=== PATIENT | female | born 1980 | race African-American/Black ===

== ENCOUNTER 2025-05-08 02:37 | Emergency (ER) | payer OTHER, SELFPAY ==
--- NOTE | ~2025-05-08 | XR_ITS ---
CLINICAL HISTORY: cough 2 view chest x-ray. Comparison: None Findings: Low lung volumes. Lungs are clear. No pneumothorax or pleural effusion. Heart size normal. No passive venous congestion. No midline shift or tracheal deviation. No acute fracture. Impression: 1. No acute cardiopulmonary disease. This document has been electronically signed by: Jagjit Huerta MD on 05/08/2025 05:57:15
[2025-05-08 02:41] VITALS: BP 123/81; PULSE 84; RESP 14; TEMP 36.7; O2SAT 98; BMI 29.0
--- NOTE | 2025-05-08 02:41 | ECG_ITS ---
Test Reason : CP Blood Pressure : */* mmHG Vent. Rate : 73 BPM Atrial Rate : 73 BPM P-R Int : 160 ms QRS Dur : 74 ms QT Int : 382 ms P-R-T Axes : 25 57 37 degrees QTcB Int : 420 ms Normal sinus rhythm with sinus arrhythmia Low voltage QRS Borderline ECG No previous ECGs available Referred By: Generic ED Physician Electronically Signed By: Steven Thompson
[2025-05-08 03:01] LABS: MANUAL DIFF FLAG NO
[2025-05-08 03:02] LABS: Hematocrit 36.4 % (37.0-47.0); Hemoglobin 11.8 g/dl (12.0-16.0); Imm Gran Abs Auto 0.01 X10*3/uL (0.00-0.03); Imm Gran Pct Auto 0.2 % (0.0-0.4); Lymphocytes Absolute Auto 1.9 X10*3/uL (1.2-4.9); Mean Corpuscular HGB Conc 32.4 g/dl (31.0-35.0); Mean Corpuscular Hemoglobin 28.6 pg (27.0-33.0); Mean Corpuscular Volume 88.3 fL (80.0-98.0); NRBC Abs Auto 0.000 X10*3/uL (0.0-0.012); NRBC Pct Auto 0.0 /100WBC (0.0-0.2); Platelet Count 270 X10*3/uL (160-400); Red Blood Count 4.12 X10*6/uL (4.20-5.50); White Blood Count 6.2 X10*3/uL (4.8-10.8)
[2025-05-08 03:07] VITALS: BP 132/79; PULSE 81; RESP 20; TEMP 36.8; O2SAT 98
--- NOTE | 2025-05-08 03:10 | ED.CHESTPAIN ---
HPI - Chest Pain General Chief Complaint: Chest Pain Stated Complaint: chest pain Time Seen by Provider: 05/08/25 03:10 History of Present Illness ED Provider: Loraine DANG narrative: The patient is a 45-year-old who is generally in good health. The patient states that they have felt unwell for about 4 days. The syndrome began with a sore throat and what they describe as ?flu-like symptoms? with body aches and a headache. Also a sense of nasal congestion. The sore throat lasted for 2 days and then got better. The patient thought that she might be getting better but over the last 24 hours has felt worse again with a cough and some pain in her left lower back. No significant pleuritic pain. She does not feel particularly short of breath. She does not think she has had a fever. No pain or swelling in her legs. The patient takes Xyzal for allergies. She is not on any control pills. She has an IUD. Related Data Previous Rx's ?Medication ?Instructions ?Recorded doxycycline monohydrate 100 mg 100 mg PO BID #14 caps 05/08/25 capsule Allergies Allergy/AdvReac Type Severity Reaction Status Date / Time No Known Allergies Allergy Verified 05/08/25 02:43 Review of Systems Review of Systems: Yes all other systems are reviewed and are negative [facility] Social History Social History Advance Directives: No Advance Directives Information Provided: No Do you have a plan to hurt others: No Plan Physical Exam Vital Signs: Vital Signs: Last Vital Signs Temp 98.6 F 05/08/25 05:02 Pulse 67 05/08/25 05:02 Resp 18 05/08/25 05:02 BP 116/74 05/08/25 05:02 Pulse Ox 97 05/08/25 05:02 O2 Del Method Room Air 05/08/25 05:02 BMI result Body Mass Index 29.0 Const: Other: The patient is a 45-year-old who was awake, alert, pleasant, cooperative. The patient does not appear obviously acutely ill or in distress at all. Orientation/consciousness: patient oriented x3 HEENT: Other: The face is symmetrical. ?Mucous membranes moist. Posterior pharynx is unremarkable. Eyes: Other: Pupils are round equal, conjunctivae are clear, extraocular movements intact General: appearance normal, both eyes and all related structures Neck: Neck: Yes normal visual inspection, Yes full ROM and Yes no lymphadenopathy Resp: Effort & Inspection: normal respiratory effort Auscultation: clear to auscultation bilaterally Cardio: Rate: regular rate Rhythm: regular rhythm Heart sounds: S1 normal heart sound present and S2 normal heart sound present Back/Spine/Pelvis: Other: The patient has some left lower paraspinous tenderness. Skin: Other: The skin is dry and unremarkable Neuro: General: patient oriented x3, gait normal, tone normal, moves all extremities, no focal motor deficits and CN's II-XI intact bilaterally Extrem: Other: There is no calf swelling or tenderness. No asymmetry. No peripheral edema. Medications Administered Discontinued Medications Generic Name Dose Route Start Last Admin Trade Name Freq PRN Reason Stop Dose Admin Acetaminophen 975 mg 05/08/25 03:29 05/08/25 03:40 Acetaminophen 325 Mg Tablet PO 05/08/25 03:30 975 mg ONCE ONE Administration Doxycycline Monohydrate 100 mg 05/08/25 04:43 05/08/25 04:58 Doxycycline Monohydrate 100 Mg Capsule PO 05/08/25 04:44 100 mg ONCE ONE Administration Ketorolac Tromethamine 30 mg 05/08/25 03:29 05/08/25 03:40 Ketorolac Tromethamine 30 Mg/Ml Vial IM 05/08/25 03:30 30 mg ONCE ONE Administration Medical Decision Making Medical Decision Making [facility] Narrative: The patient is a 45-year-old woman who comes to the emergency room with symptoms consistent with a 4 day illness with a largely respiratory symptoms. She had 2 days of a sore throat but the sore throat has resolved. More recently she has had a cough. Also a lot of nasal congestion and a headache. She also has some low back pain. No urinary symptoms. She has had a mild headache. Clinically the patient does not look toxic. Vital signs were normal. She is not febrile. She has a normal white count and differential. CRP minimally elevated at 0.88. She has a minimal transaminitis with an AST of 37 and an ALT of 40. I felt that her chest x-ray might shows some subtle bilateral abnormalities potentially consistent with a an atypical pneumonia. She was started on doxycycline. She should follow up with the regular doctor. She should return if worse. The patient had some left lower back pain. This did not seem particularly pleuritic. It seemed fairly low more in the lumbar region than in the thoracic region. I do not have any significant suspicion for pulmonary embolism. She is not tachycardic or hypoxic, she has no peripheral signs of a DVT, and the pain she is experiencing does not seem to be particularly pleuritic. Lab Data 05/08/25 02:56 05/08/25 02:56 Labs: Lab Results 05/08/25 Range/Units 02:56 WBC 6.2 (4.8-10.8) X10*3/uL RBC 4.12 L (4.20-5.50) X10*6/uL Hgb 11.8 L (12.0-16.0) g/dl Hct 36.4 L (37.0-47.0) % MCV 88.3 (80.0-98.0) fL MCH 28.6 (27.0-33.0) pg MCHC 32.4 (31.0-35.0) g/dl RDW 13.4 (11.0-16.0) % Plt Count 270 (160-400) X10*3/uL MPV 9.8 (9.4-12.3) fL Immature Gran % (Auto) 0.2 (0.0-0.4) % Neut % (Auto) 56.5 (45-73) % Lymph % (Auto) 31.0 (20-40) % [place] % (Auto) 6.7 (2-11) % Eos % (Auto) 5.3 H (0-4) % Baso % (Auto) 0.3 (0-2) % Lymph # (Auto) 1.9 (1.2-4.9) X10*3/uL [place] # (Auto) 0.4 (0.1-1.2) X10*3/uL Eos # (Auto) 0.3 (0.0-0.4) X10*3/uL Baso # (Auto) 0.0 (0.0-0.2) X10*3/uL Abs Immat Gran (auto) 0.01 (0.00-0.03) X10*3/uL Absolute Neuts (auto) 3.5 (2.0-8.3) x10*3/uL Absolute Nucleated RBC 0.000 (0.0-0.012) X10*3/uL Nucleated RBC % (auto) 0.0 (0.0-0.2) /100WBC Sodium 137 (135-145) mmol/L Potassium 4.1 (3.3-5.1) mmol/L Chloride 109 H (96-108) mmol/L Carbon Dioxide 21 L (22-29) mmol/L Anion Gap 11 L (12-20) BUN 13 (9-16) mg/dL Creatinine 0.70 (0.5-1.4) mg/dL Estim Creat Clear Calc 110.4 Estimated GFR > 60 Random Glucose 97 (60-115) mg/dL Calcium 8.7 (8.4-10.2) mg/dL Total Bilirubin 0.3 (0.0-1.0) mg/dL AST 37 H (5-31) U/L ALT 40 H (0-31) U/L Alkaline Phosphatase 75 (39-117) U/L Troponin I High Sens < 2.7 (<3.5-17.0) ng/L C-Reactive Protein 0.88 H (< or = 0.50) mg/dL Total Protein 7.7 (6.5-8.0) g/dL Albumin 4.1 (3.5-5.0) g/dL Beta HCG, Quant < 2 mIU/mL Influenza Type A (PCR) NEGATIVE (Negative) Influenza Type B (PCR) NEGATIVE (Negative) RSV RNA Qual (PCR) NEGATIVE (Negative) SARS-CoV-2 RNA (RT-PCR) NEGATIVE (Negative) Independent Interpretation I performed an independent interpretation of an: EKG Interpretation: EKG at 02:46 shows normal sinus rhythm with a sinus arrhythmia at 73 beats per minute. It is an unremarkable EKG. Discharge Plan Discharge Clinical Impression: Atypical pneumonia Patient Disposition: Home, Self-Care Additional Instructions: Your blood testing is very reassuring. In my opinion your chest x-ray may show some slight changes potentially consistent with a pneumonia. You has been started on a course of the antibiotic doxycycline. This antibiotics should be taken 2 times a day, approximately every 12 hours. You received your 1st dose here in the emergency room. The prescription was sent to the [facility] on [facility] in [place]. You may use ibuprofen and acetaminophen as needed for discomfort. For your sinuses you may wish to experiment with a Neti pot. Drink lot of fluids, especially warm fluids like tea and hot soup. Please plan on following up with your new primary care doctor when you have a chance. Return to the emergency room if you feel significantly worse. Prescriptions: New doxycycline monohydrate 100 mg capsule 100 mg PO BID Qty: 14 0RF Referrals: Sara Guzmán FNP-HAIDER [Nurse Practitioner, Internal Medicine] Stand Alone Forms: Work/School Release Interventions: ED Discharge Assessment Last Done: 05/08/25 05:02 Discharge Date/Time: 05/08/25 05:13 Print Language: Vietnamese
--- OUTSIDE RECORDS SUMMARY | 2025-05-08 03:14 | XMS_ITS | Clinical Summary ---
Author Organization [address] Address [address] [place] [phone] Phone Care Team Providers Care Construction Trades Contractor Name Role Phone Sharmaine Noe MD Primary Care Provider [phone] [phone] Allergies No known active allergies Medications fluconazole (DIFLUCAN) 150 mg tablet Take 1 tab by mouth now. May repeat in 72 hours if still symptomatic . 2 tablet 02/16/2025 Active Encounters Date Type Department Care Team Description 02/16/2025 11:15 AM EDT Office Visit [facility] [address] [place] [address] Leonor Tanner CNM Acute vaginitis (Primary Dx); Screen for STD (sexually transmitted disease) from Last 3 Months Surgical History Surgery Date Site/Laterality Comments ELBOW SURGERY 2001 and 2007 Right PROCEDURE: HISTORICAL ELBOW SURGERY BELT ABDOMINOPLASTY 07/2022 PROCEDURE: HISTORICAL TUMMY TUCK; COMMENT: [place] Medical History Medical History Date Comments Obesity DX:Obesity Family History Medical History Relation Name Comments Breast cancer Neg Hx Colon cancer Neg Hx Ovarian cancer Neg Hx Social History Tobacco Use Types Packs/Day Years Used Date Smoking Tobacco: Never Smokeless Tobacco: Never Alcohol Use Standard Drinks/Week Comments No 0 (1 standard drink = 0.6 oz pur e alcohol) Comments No Sex and Gender Information Value Date Recorded Sex Assigned at Not on file Legal Sex Female 9:47 PM EST Gender Identity Not on file Sexual Orientation Not on file Obstetrics History * This document contains information received from the source organization and may not represent a complete record from that organization. Para Term AB IAB SAB Ectopic Multiple Livin g Live Births 6 2 2 2 2 Date Outcome GA Total Labor Labor/2nd/3rd Weight Sex Type Anes PTL Antonietta A1 A5 Name Clin 1999 Term Vag-S pont Livin g Comments:anemia 2003 2004 2005 2006 2015 Term 39w 0d 4139 g (146 oz) M CS-LT ranv Spinal Livin g Jongae l Sandeep [facility] Comments:Placenta prev ia vs vasal previa Last Filed Vital Signs Vital Sign Reading Time Taken Comments Blood Pressure 98/60 02/16/2025 11:22 AM EDT Pulse 84 02/16/2025 11:22 AM EDT Temperature - - Respiratory Rate - - Oxygen Saturation - - Inhaled Oxygen Concentration - - Weight 96 kg (211 lb 9.6 oz) 11/01/2021 3:37 PM EDT Height 166.4 cm (5' 5.5 ) 11/07/2022 4:00 PM EDT Body Mass Index - - Plan of Treatment Health Maintenance Due Date Last Done Comments Hepatitis A Vaccines (1 of 2 - Risk 2-dose series) 02/11/2000 HIV Screening 06/09/2022 Hepatitis C Screening 06/09/2022 Social Influencers of Health Screening 06/09/2022 Cervical Cancer Screening: Pap Smear 09/10/2023 09/09/2020, 08/25/2020 Depression Screening 07/01/2024 COVID-19 Vaccine ( season) 2025 Influenza Vaccine (#1) 2025 9, 04/29/2018, 04/29/2018, Additional history exists Breast Cancer Screening 12/17/2025 12/18/19 24, 12/18/2023, 11/13/2022 DTaP,Tdap,and Td Vaccines (10 - Td or Tdap) 02/06/2026 02/07/2016, 02/04/2016, 01/01/2014, Additional history exists RSV Immunization Adult Patients (1 - 1-dose 75+ series) 02/11/2056 IPV Vaccines Completed 12/29/1986, 05/01, 1981, Additional history exists Hepatitis B Vaccines Completed 03/31/1998, 07/27/1997, 12/10/1996 HPV Vaccines Completed 01/16/2008, 08/29, 06/19/2007 Meningococcal ACWY Vaccine Aged Out 12/27/2012 N o longer eligible based on patient's age to complete this topic MMR Vaccines Completed 02/22/2016, 07/1990, 08/17/1982 HIB Vaccines Aged Out No longer eligi ble based on patient's age to complete this topic Meningococcal B Vaccine Aged Out No l onger eligible based on patient's age to complete this topic Pneumococcal Vaccine: Pediatrics (0 to 5 Years) and At-Risk Patients (6 to 49 Years) Aged Out No longer eligible based on patient's age to complete this topic RSV Immunization Patients Under 20 months Aged Out No longer eligible based on patient's age to complete this topic Varicella Vaccines Aged Out No longer eligible based on patient's age to complete this topic Procedures Procedure Name Priority Date/Time Associated Diagnosis Comments TRICHOMONAS VAGINALIS ANTIGEN Routine 02/16/2025 11:36 AM EDT Acute vaginitis CHLAMYDIA TRACHOMATIS AND NEISSERIA GONORRHOEAE PCR Routine 02/16/2025 11:36 AM EDT Acute vaginitis Screen for STD (sexually transmitted disease) WET PREP, GENITAL Routine 02/16/2025 11: 36 AM EDT Acute vaginitis SCREENING MAMMOGRAPHY BI 2-VIEW BREAST INC CAD Routine 12/18/2023 11:17 AM EDT Encounter for screening mammogram for malignant neoplasm of breast PAP SMEAR Routine 09/09/2020 from Last 3 Months or Most Recently Relevant to Health Maintenance Results * Trichomonas vaginalis antigen (02/16/2025 11:36 AM EDT) Trichomonas vaginalis Negative Negative 02/16/2025 9:43 PM EDT [facility] Swab Vaginal structure / Unknown Non-blood Collection / Unknown 02/16/2025 11:36 AM EDT 02/16/2025 11:36 AM EDT [facility] LAB MICROBIOLOGY - GENERAL OR DERABLES Final Result Performing Organization Address [facility] Co de Phone Number [facility] [address] [place] [address], [place] [phone] * Chlamydia trachomatis and Neisseria gonorrhoeae molecular study (02/16/2025 11:36 AM EDT) Neisseria gonorrhoeae PCR Negative Negative LAB MOLECULAR DIAGNOSTICS METHOD 02/17/2025 8:38 AM EDT [facility] Chlamydia trachomatis PCR Negative Negative LAB MOLECULAR DIAGNOSTICS METHOD 02/17/2025 8:38 AM EDT [facility] Swab Cervix uteri structure / Unknown Non-blood Collection / Unknown 02/16/2025 11:36 AM EDT 02/16/2025 11:36 AM EDT [facility] LAB MICROBIOLOGY - GENERAL OR DERABLES Final Result Performing Organization Address [facility] de Phone Number [facility] [address] [place] [address], [place] [phone] * (ABNORMAL) Wet prep, genital (02/16/2025 11:36 AM EDT) Pathologist [facility] Clue Cells, Wet Prep Negative Negative 02/16/2025 9:41 PM EDT [facility] Yeast, Wet Prep Positive(A) Negative 02/16/2025 9:41 PM EDT [facility] Trichomonas, Wet Prep Indeterminate Negative 02/16/2025 9:41 PM EDT [facility] Comment:Refer to Trichomonas antigen. Swab Vaginal structure / Unknown Non-blood Collection / Unknown 02/16/2025 11:36 AM EDT 02/16/2025 11:36 AM EDT [facility] LAB MICROBIOLOGY - GENERAL OR DERABLES Final Result Performing Organization Address City/[facility]/ZIP Co de Phone Number [facility] [place] [facility] [address] [place] [address], * SCREENING MAMMOGRAPHY BI 2-VIEW BREAST INC CAD (12/18/2023 11:17 AM EDT) Anatomical Region Laterality Modality Radiographic Yudy ging 11/13/2022 3:29 PM EDT Narrative 12/18/2023 1:16 PM EDT This is a summary report. The complete report is available in the patient's medical record. If you cannot access the medical record, please contact the sending organization for a detailed fax or copy. Full field digital screening tomosynthesis mammography, reviewed with CAD and compared to previous. The breasts are composed of fatty and fibroglandular tissue. No suspicious mass, architectural distortion or suspicious calcifications are identified. IMPRESSION: : No mammographic evidence of malignancy. BIRADS 1-Negative; N. 5 year breast cancer risk assessment 0.7 % Lifetime breast cancer risk assessment 9.5 % Breast cancer risk category Low (<15%) Procedure Note Jeffery Beth MD - 04/15/2024 This is a summary report. The complete report is available in thepatient's medical record. If you cannot access the medical record, pleasecontact the sending organization for a detailed fax or copy. Full field digital screening tomosynthesis mammography, reviewed with CADand compared to previous. The breasts are composed of fatty andfibroglandular tissue. No suspicious mass, architectural distortion orsuspicious calcifications are identified. IMPRESSION: : No mammographic evidence of malignancy. BIRADS 1-Negative; N. 5 year breast cancer risk assessment 0.7 % Lifetime breast cancer risk assessment 9.5 % Breast cancer risk category Low (<15%) us Sherice Ragsdale DO IMG XR PROCEDURES Final Resul t * Pap smear (09/09/2020) 09/09/2020 Narrative HISTORICAL TESTING LAB RESULTING AGENCY - 09/16/2020 12:50 PM EDT [id number] THINPREP PAP, IMAGED: NEGATIVE FOR SQUAMOUS INTRAEPITHELIAL LESION AND MALIGNANCY . REACTIVE CELLULAR CHANGES. SUKHI REESE(ASCP) (CASE SCREENED 09 14 2020) KARI MONROE M.D. , PATHOLOGIST (CASE ELECTRONICALLY SIGNED 09 15 2020) RESULT OF APTIMA HIGH RISK HPV ASSAY: HIGH RISK HPV: NEGATIVE (SEROTYPES 16,18,31,33,35,39,45,51,52,56,58,59,66,68) COMPLETED ON 2020-09-13 ADEQUACY: SATISFACTORY ENDOCERVICAL/TRANSFORMATION ZONE COMPONENT PRESENT. SOURCE: THINPREP PAP HPV ANY DX: REFLEX 16 AND 18, CERVICAL, IMAGED CLINICAL INFORMATION: HPV ANY DIAGNOSIS. HORMONES, PAP HX NEG, Z12.4 Maddie Alvarez [facility] CYTOLOGY ORDERA [facility] Final Result HISTORICAL TESTING LAB RESULTING AGENCY from Last 3 Months or Most Recently Relevant to Health Maintenance Insurance [employer] Care Teams Construction Trades Contractor Relationship Specialty Start Date End Date Sharmaine Noe MD [address] [place] [address] PCP - General Internal Medicine 07/25/15
[2025-05-08 03:15] LABS: Alanine Aminotransferase 40 U/L (0-31); Albumin Level 4.1 g/dL (3.5-5.0); Alkaline Phosphatase 75 U/L (39-117); Anion Gap 11 (12-20); Aspartate Amino Transferase 37 U/L (5-31); Blood Urea Nitrogen 13 mg/dL (9-16); Calcium 8.7 mg/dL (8.4-10.2); Carbon Dioxide 21 mmol/L (22-29); Chloride 109 mmol/L (96-108); Creatinine Clr Calc Pharmacy 110.4; Estimated Glomerular Filt Rate > 60; Potassium 4.1 mmol/L (3.3-5.1); Sodium 137 mmol/L (135-145); Total Protein 7.7 g/dL (6.5-8.0)
[2025-05-08 03:22] LABS: Troponin-I High Sensitivity < 2.7 ng/L (<3.5-17.0)
[2025-05-08 03:38] LABS: Resp Syncy Virus RNA Qual PCR NEGATIVE (Negative); SARS COV2 PCR INHOUSE NEGATIVE (Negative)
[2025-05-08 04:17] VITALS: BP 116/74; PULSE 67; RESP 18; O2SAT 97
[2025-05-08 05:02] VITALS: BP 116/74; PULSE 67; RESP 18; TEMP 37; O2SAT 97
== END 2025-05-08 05:13 | disposition home or self-care (01) ==
PROVIDERS: Emergency Provider Emergency Medicine
DX: J18.9 Pneumonia, unspecified organism (principal); M54.50 Low back pain, unspecified
CPT/HCPCS: 71046; 80053; 84484; 84702; 85025; 86140; 87637; 93005; 96372; 99284; 99285; J1885

== ENCOUNTER → 2025-05-08 02:41 | Outpatient (BNV) | payer OTHER, SELFPAY | PROVIDERS: Emergency Provider Emergency Medicine; Visit Provider Internal Medicine Cardiovascular Disease | DX: R07.9 Chest pain, unspecified (principal) | CPT/HCPCS: 93010 ==

== ENCOUNTER → 2025-05-08 04:00 | Outpatient (BNV) | payer OTHER, SELFPAY | PROVIDERS: Emergency Provider Emergency Medicine; Visit Provider Radiology Diagnostic Radiology | DX: R05.9 Cough, unspecified (principal) | CPT/HCPCS: 71046 ==

== ENCOUNTER 2025-06-18 06:13 | Outpatient (REF) | payer OTHER, SELFPAY ==
--- OUTSIDE RECORDS SUMMARY | 2025-06-18 06:17 | XMS_ITS | Clinical Summary ---
Author Organization [address] Address [address] [place] [phone] Phone Care Team Providers Care [employer] Social Studies Tutor Name Role Phone Sharmaine Noe MD Primary Care Provider +[phone] Allergies No known active allergies Medications fluconazole (DIFLUCAN) 150 mg tablet Take 1 tab by mouth now. May repeat in 72 hours if still symptomatic . 2 tablet 02/16/2025 Active Surgical History Surgery Date Site/Laterality Comments ELBOW SURGERY 2001 and 2007 Right PROCEDURE: HISTORICAL ELBOW SURGERY BELT ABDOMINOPLASTY 07/2022 PROCEDURE: HISTORICAL TUMMY TUCK; COMMENT: [place] Medical History Medical History Date Comments Obesity [...] oz) M CS-LT ranv Spinal Livin g Michae l Sandeep Delivery Location:[facility] Comments:Placenta prev ia vs vasal previa Last [...] Additional history exists Breast Cancer Screening 12/17/2025 12/18/19, 12/18/2023, 11/13/2022 DTaP,Tdap,and Td Vaccines (10 - [...] Procedure Name Priority Date/Time Associated Diagnosis Comments SCREENING MAMMOGRAPHY BI 2-VIEW BREAST INC CAD Routine 12/18/2023 11:17 AM EDT Encounter for screening mammogram for malignant neoplasm of breast PAP SMEAR Routine 09/09/2020 from Last 3 Months or Most Recently Relevant to Health Maintenance Results * SCREENING MAMMOGRAPHY BI 2-VIEW BREAST INC [...] % Breast cancer risk category Low (<15%) Sherice Ragsdale DO IMG XR PROCEDURES Final Resul t * Pap smear (09/09/2020) 09/09/2020 Narrative HISTORICAL TESTING LAB RESULTING AGENCY - 09/16/2020 12:50 PM EDT [id number] THINPREP PAP, IMAGED: NEGATIVE FOR SQUAMOUS INTRAEPITHELIAL LESION AND MALIGNANCY . REACTIVE CELLULAR CHANGES. CABRERA FITCH , SUKHI(ASCP) (CASE SCREENED 09 14 2020) KARI MONROE M.D. , PATHOLOGIST (CASE ELECTRONICALLY SIGNED 09 15 2020) RESULT OF APTIMA HIGH RISK HPV ASSAY: HIGH RISK HPV: NEGATIVE (SEROTYPES 16,18,31,33,35,39,45,51,52,56,58,59,66,68) COMPLETED ON 2020-09-13 ADEQUACY: SATISFACTORY ENDOCERVICAL/TRANSFORMATION ZONE COMPONENT PRESENT. SOURCE: THINPREP PAP HPV ANY DX: REFLEX 16 AND 18, CERVICAL, IMAGED CLINICAL INFORMATION: HPV ANY DIAGNOSIS. HORMONES, PAP HX NEG, Z12.4 Maddie Alvarez CN LAB CYTOLOGY ORDERA BLES Final Result HISTORICAL TESTING LAB RESULTING AGENCY from Last 3 Months or Most Recently Relevant to Health Maintenance Insurance [employer] Care Teams High School Social Studies Tutor Relationship Specialty Start Date End Date Sharmaine Noe MD [address] [place] [address] PCP - General Internal Medicine 07/25/15
[2025-06-18 06:36] LABS: MANUAL DIFF FLAG NO
[2025-06-18 07:22] LABS: Resp Syncy Virus RNA Qual PCR NEGATIVE (Negative); SARS COV2 PCR INHOUSE NEGATIVE (Negative)
[2025-06-18 08:16] LABS: Hematocrit 37.2 % (37.0-47.0); Hemoglobin 12.0 g/dl (12.0-16.0); Imm Gran Abs Auto 0.01 X10*3/uL (0.00-0.03); Imm Gran Pct Auto 0.3 % (0.0-0.4); Lymphocytes Absolute Auto 1.1 X10*3/uL (1.2-4.9); Mean Corpuscular HGB Conc 32.3 g/dl (31.0-35.0); Mean Corpuscular Hemoglobin 28.6 pg (27.0-33.0); Mean Corpuscular Volume 88.6 fL (80.0-98.0); NRBC Abs Auto 0.000 X10*3/uL (0.0-0.012); NRBC Pct Auto 0.0 /100WBC (0.0-0.2); Platelet Count 302 X10*3/uL (160-400); Red Blood Count 4.20 X10*6/uL (4.20-5.50); White Blood Count 3.7 X10*3/uL (4.8-10.8)
[2025-06-18 08:31] LABS: Alanine Aminotransferase 32 U/L (0-31); Albumin Level 4.2 g/dL (3.5-5.0); Alkaline Phosphatase 73 U/L (39-117); Anion Gap 9 (12-20); Aspartate Amino Transferase 30 U/L (5-31); Blood Urea Nitrogen 9 mg/dL (9-16); Calcium 8.7 mg/dL (8.4-10.2); Carbon Dioxide 24 mmol/L (22-29); Chloride 107 mmol/L (96-108); Estimated Glomerular Filt Rate > 60; Iron 29 mcg/dL (30-160); Percent Iron Saturation 9 % (15-50); Potassium 3.7 mmol/L (3.3-5.1); Sodium 136 mmol/L (135-145); Total Iron Binding Capacity 332 mcg/dL (228-428); Total Protein 7.8 g/dL (6.5-8.0); Unsaturated Iron Binding 303 ug/dL
== END 2025-06-18 06:14 | disposition home or self-care (01) ==
LOC: HO.LAB 06:13
PROVIDERS: Visit Provider Emergency Medicine
DX: R53.83 Other fatigue (principal); R11.0 Nausea; R53.81 Other malaise; Z13.0 Encounter for screening for diseases of the blood and blood-forming organs and certain disorders involving the immune mechanism; Z11.52 Encounter for screening for COVID-19
CPT/HCPCS: 80048; 80076; 83540; 85025; 87637

== ENCOUNTER 2025-06-21 15:07 | Outpatient (REF) | payer OTHER, SELFPAY ==
--- OUTSIDE RECORDS SUMMARY | 2025-06-21 18:20 | XMS_ITS | Clinical Summary ---
Author Organization [address] Address [address] [place] [phone] Phone Care Team Providers Care Land Acquisition Specialist Name Role Phone Sharmaine Noe MD Primary Care Provider [phone] Allergies No known active allergies Medications fluconazole (DIFLUCAN) 150 mg tablet Take 1 tab by mouth now. May repeat in 72 hours if still symptomatic . 2 tablet 02/16/2025 Active Surgical History Surgery Date Site/Laterality Comments ELBOW SURGERY 2001 and 2007 Right PROCEDURE: HISTORICAL ELBOW SURGERY BELT ABDOMINOPLASTY 07/2022 PROCEDURE: HISTORICAL TUMMY TUCK; COMMENT: [place] Medical History Medical History Date Comments Obesity [...] Spinal Livin g Michae l Sandeep Delivery Location[facility] Comments:Placenta prev ia vs vasal previa Last [...] RESULTING AGENCY - 09/16/2020 12:50 PM EDT [id number] THINPREP PAP, IMAGED: NEGATIVE FOR SQUAMOUS INTRAEPITHELIAL [...] Most Recently Relevant to Health Maintenance Insurance [employer] [facility] Care Teams Land Acquisition Specialist Relationship Specialty Start Date End Date Sharmaine Noe MD [address] [place] [address] PCP - General Internal Medicine 07/25/15
== END 2025-06-21 15:08 ==
LOC: HO.MAMMO 15:07
PROVIDERS: PCP Nurse Practitioner Family; Visit Provider Nurse Practitioner Family
DX: Z12.31 Encounter for screening mammogram for malignant neoplasm of breast (principal)
CPT/HCPCS: 77063; 77067

== ENCOUNTER → 2025-06-21 15:15 | Outpatient (BNV) | payer OTHER, SELFPAY | PROVIDERS: PCP Nurse Practitioner Family; Visit Provider Internal Medicine | DX: Z12.31 Encounter for screening mammogram for malignant neoplasm of breast (principal) | CPT/HCPCS: 77063; 77067 ==